=== PATIENT | female | born 1970 | race Two or more races ===

== ENCOUNTER 2018-05-18 23:05 | Emergency (ER) | payer OTHER ==
[2018-05-18 23:11] VITALS: BMI 34.7
[2018-05-19] MEDS ORDERED: SODIUM CHLORIDE 0.9% 500 ML INFUS.BAG IV ONE (00:05)
--- NOTE | 2018-05-19 00:24 | PDOC ---
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 Pain is crampy type 6/10 currently which started gradually, but has progressively worsened. States has diarrhea x 4 episode today, no hematochazia, (+)dizziness, No prior episode of this pain. LMP 05/02/18, PMD; Dr. James PMHX: as above PSOCHX: neg GENERAL/CONSTITUTIONAL: [No fever or chills. No weakness. No weight change.] HEAD, EYES, EARS, NOSE AND THROAT: [No change in vision. No ear pain or discharge. No sore throat.] CARDIOVASCULAR: [No chest pain or shortness of breath.] RESPIRATORY: [No cough, wheezing, or hemoptysis.] GASTROINTESTINAL: [No nausea, vomiting, diarrhea or constipation. No rectal bleeding.] GENITOURINARY: [No dysuria, frequency, or change in urination.] MUSCULOSKELETAL: [No joint or muscle swelling or pain. No neck or back pain.] SKIN AND BREASTS: [No rash or easy bruising.] NEUROLOGIC: [No headache, vertigo, loss of consciousness, or loss of sensation.] PSYCHIATRIC: [No depression or anxiety.] ENDOCRINE: [No increased thirst. No abnormal weight change.] HEMATOLOGIC/LYMPHATIC: [No anemia, easy bleeding, or history of blood clots.] ALLERGIC/IMMUNOLOGIC: [No hives or skin allergy. No latex allergy.] GENERAL: [The patient is awake, alert, and fully oriented, in mild distress.] HEAD: [Normal with no signs of trauma.] EYES: [Pupils equal, round and reactive to light, extraocular movements intact, sclera anicteric, conjunctiva (+) palor.] ENT: [Ears normal, nares patent, oropharynx clear without exudates. Moist mucous membranes.] NECK: [Normal range of motion, supple without lymphadenopathy, JVD, or masses.] LUNGS: [Breath sounds equal, clear to auscultation bilaterally. No wheezes, and no crackles.] HEART: [Regular rate and rhythm, normal S1 and S2 without murmur, rub.] ABDOMEN: [Soft, nontender, normoactive bowel sounds. No guarding, no rebound. No masses.] EXTREMITIES: [Normal range of motion, no edema. No clubbing or cyanosis. No cords, erythema, or tenderness.] NEUROLOGICAL: [Cranial nerves II through XII grossly intact. Normal speech, normal gait.] PSYCH: [Normal mood, normal affect.] SKIN: [Warm, Dry, normal turgor, no rashes or lesions noted.] Past History - Past Medical History Allergies/Adverse Reactions: Allergies Allergy/AdvReac Type Severity Reaction Status Date / Time No Known Allergies Allergy Verified 05/19/18 01:58 Home Medications: Ambulatory Orders Ferrous Sulfate 325 mg PO BID #30 tablet 05/19/18 Rivaroxaban [Xarelto -] 20 mg PO DAILY 05/19/18 COPD: No Other medical history: DVT - Suicide/Smoking/Psychosocial Hx Smoking History: Never smoked Have you smoked in the past 12 months: No Information on smoking cessation initiated: No Hx Alcohol Use: Yes (socail) Drug/Substance Use Hx: No Substance Use Type: None Hx Substance Use Treatment: No *Physical Exam - Vital Signs Last Vital Signs Temp Pulse Resp BP Pulse Ox 98.6 F 80 18 157/92 99 05/18/18 23:08 05/18/18 23:08 05/18/18 23:08 05/18/18 23:08 05/18/18 23:08 ED Treatment Course - LABORATORY CBC & Chemistry Diagram: 05/19/18 00:15 05/19/18 00:15 - RADIOLOGY Radiology Studies Ordered: Category Date Time Status PELVIS(OTHER) US [US] Stat Ultrasound 05/19/18 00:02 Ordered TRANSVAGINAL ULTRASOUND US [US] Stat Ultrasound 05/19/18 00:02 Ordered Medical Decision Making - Medical Decision Making 05/19/18 00:16 Patient is a 47 year old female with 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 R/O ovarian torsion, diverticulitis, appendicitis, labs, IVF pain meds offered decline currently Laboratory Tests 05/19/18 05/19/18 05/19/18 00:15 00:15 01:52 WBC 7.4 Hgb 6.9 L* Hct 24.1 L D Plt Count 323 D Sodium 138 Potassium 3.8 Chloride 107 Carbon Dioxide 25 BUN 6 L Creatinine 0.7 Random Glucose 100 Stool Occult Blood Negative 05/19/18 02:10 Patient Full Name: DURAN ZHAO Patient Accession No: [id number] Patient : 1970 Reason for Exam: PELVIC PAIN Referring Physician: Patient Name: PAVEL GARZON THIS IS A PRELIMINARY REPORT FROM [facility] DATE OF SERVICE: 2018-05-19 00:35:29 IMAGES: 26 EXAM: Ultrasound PELVIS(OTHER) US with transabdominal and endovaginal imaging HISTORY: Pelvic pain COMPARISON: None. FINDINGS: The uterus measures 12.3 cm in length. There is a 5.5 x 4.0 cm uterine wall fibroid The endometrium is 14 mm which is mildly thickened. The right ovary measures 1.9 x 2.2 x 1.5 cm. Doppler imaging demonstrates positive vascular flow. Left ovary is not visualized IMPRESSION: Uterine fibroid THIS DOCUMENT HAS BEEN ELECTRONICALLY SIGNED Uzair Small MD 05/19/2018 01:15 [facility]. Please call [facility] [phone] with questions. INTERPRETING RADIOLOGIST: Uzair Small MD Electronically Signed: May 19, 2018 01:17AM EDT 05/19/18 Patient noted to have hgb 6.9. States she has irreg period, and had an IUD in which was taken out about 2 months ago. States he had a heavy period this month. Transfusion offered but refused. 05/19/18 06:26 Patient Full Name: DURAN ZHAO Patient Accession No: [id number] Patient : 1970 Reason for Exam: RLQ PAIN Referring Physician: Patient Name: PAVEL GARZON THIS IS A PRELIMINARY REPORT FROM [facility] DATE OF SERVICE: 2018-05-19 04:29:22 IMAGES: 441 EXAM: CT ABDOMEN \T\ PELVIS CT WITH CONTR HISTORY: Right lower quadrant pain COMPARISON: None. FINDINGS: Abdomen Liver: Normal Spleen: Normal Pancreas: Normal Gallbladder: There is cholelithiasis. There is some gallbladder wall thickening. The gallbladder is incompletely distended Stomach: Normal Small bowel: Normal Large bowel: Normal Appendix: Not seen Adrenals:Normal Kidneys: Normal Vascular: Normal Lymphatic: Normal Peritoneal: No free peritoneal air or fluid Pelvis: Uterus: Uterus is enlarged measuring 13.2 cm in length. Rectum: Normal Bladder: Normal The inferior thorax: Normal General: Skeletal: Normal Abdominal wall: Normal IMPRESSION: Cholelithiasis. Uterine enlargement possibly reflecting fibroid change in the uterine wall. Correlation with history and pelvic exam is recommended Individualized dose optimization techniques were used for this CT. THIS DOCUMENT HAS BEEN ELECTRONICALLY SIGNED Uzair Small MD 05/19/2018 04:48 [facility] [place]. Please call [facility] [phone] with questions. INTERPRETING RADIOLOGIST: Uzair Small MD Electronically Signed: May 19, 2018 04:50AM EDT 05/19/18 06:32 EKG SR rate 75, NAD, (-) ST-T wave changes CT scan was d/w patient and the need for urgent follow up with her C.O.D. [facility] and her PMD. instructed to tart taking some iron twice per day until seen. I discussed the physical exam findings, ancillary test results and final diagnoses with the patient. I answered all of the patient's questions. The patient was satisfied with the care received and felt comfortable with the discharge plan and treatment plan. The Patient agrees to follow up with the primary care physician within 24-72 hours. *DC/Admit/Observation/Transfer Diagnosis at time of Disposition: Abdominal pain Qualifiers: Abdominal location: right lower quadrant Qualified Code(s): R10.31 - Right lower quadrant pain Anemia Qualifiers: Anemia type: unspecified type Qualified Code(s): D64.9 - Anemia, unspecified - Discharge Dispostion Disposition: HOME Condition at time of disposition: Stable - Referrals - Patient Instructions Printed Discharge Instructions: DI for Abdominal Pain-Adult, DI for Iron Deficiency Anemia-Adult Additional Instructions: Your Discharge Instructions: You must call primary care physician within 24 hours to arrange follow-up. Return to the Emergency Department with any new, persistent or worsening symptoms, for fever, chills, SOB, dizziness or any other concerning changes that may occur. Take iron pills twice per day until seen by pmd and C.O.D. BILLER. You must follow up with the pmd and C.O.D. BILLER for the anemia in 1-2 days. - Post Discharge Activity
[2018-05-19 00:36] LABS: HEMATOCRIT 24.1 % (32.4-45.2); MCHC 28.5 g/dl (32.0-36.0); MEAN CELL VOLUME 57.6 fl (80-96); MEAN PLT VOLUME 8.3 fl (7.5-11.1); PLATELET COUNT 323 K/MM3 (134-434); RBC 4.19 M/mm3 (3.60-5.2); RDW 21.4 % (11.6-15.6); WHITE BLOOD COUNT 7.4 K/mm3 (4.0-10.0)
[2018-05-19 00:44] LABS: URINE APPEARANCE CLEAR; URINE BILIRUBIN NEGATIVE (<2.0 mg/dL); URINE COLOR COLORLESS; URINE GLUCOSE (UA) NEGATIVE (NEGATIVE); URINE KETONE NEGATIVE (NEGATIVE); URINE LEUK ESTERASE NEGATIVE (NEGATIVE); URINE NITRITE NEGATIVE (NEGATIVE); URINE PROTEIN NEGATIVE (NEGATIVE); URINE UROBILINOGEN NEGATIVE mg/dL (0.2-1.0)
[2018-05-19 00:51] LABS: HCG,QUALITATIVE URINE NEGATIVE
[2018-05-19 00:58] LABS: MCH 16.4 pg (25.7-33.7)
[2018-05-19 01:01] LABS: HEMOGLOBIN 6.9 GM/dL (10.7-15.3)
[2018-05-19 01:24] LABS: ALBUMIN 3.9 g/dl (3.4-5.0); ALK PHOS 53 U/L (45-117); ANION GAP 6 (8-16); BILIRUBIN,TOTAL 0.3 mg/dL (0.2-1.0); BLOOD UREA NITROGEN 6 mg/dL (7-18); CALCIUM 8.8 mg/dL (8.5-10.1); CHLORIDE 107 mmol/L (98-107); CO2 25 mmol/L (21-32); CREATININE 0.7 mg/dL (0.55-1.02); GLUCOSE,RANDOM 100 mg/dL (74-106); POTASSIUM 3.8 mmol/L (3.5-5.1); SGOT/AST 25 U/L (15-37); SGPT/ALT 20 U/L (12-78); SODIUM 138 mmol/L (136-145); TOT PROT 7.3 g/dl (6.4-8.2)
[2018-05-19 03:41] LABS: ANISOCYTOSIS 2+
[2018-05-19 07:41] VITALS: BP 131/75; PULSE 89; TEMP 97.7
--- NOTE | 2018-05-19 11:31 | EKG ---
Test Reason : Blood Pressure : / mmHG Vent. Rate : 075 BPM Atrial Rate : 075 BPM P-R Int : 142 ms QRS Dur : 094 ms QT Int : 388 ms P-R-T Axes : 073 051 040 degrees QTc Int : 433 ms NORMAL SINUS RHYTHM NORMAL ECG WHEN COMPARED WITH ECG OF 12-OCT-2014 02:13, NO SIGNIFICANT CHANGE WAS FOUND Confirmed by CORTNEY LYN MD ([id number]) on 05/19/2018 11:31:05 AM Referred By: Confirmed By:CORTNEY LYN MD
== END 2018-05-19 08:21 | disposition home or self-care (01) ==
LOC: JER 23:05
DX: R10.31 Right lower quadrant pain (principal); D64.9 Anemia, unspecified; Z86.718 Personal history of other venous thrombosis and embolism; Z79.01 Long term (current) use of anticoagulants; D25.9 Leiomyoma of uterus, unspecified
CPT/HCPCS: 36415; 74177-TC; 76830-TC; 76856-TC; 80053; 81003; 82272; 84703; 85025; 86850; 86900; 86901; 93005; 93010; 99283-25